=== PATIENT | male | born 1955 ===

== ENCOUNTER 2022-08-12 14:49 | Inpatient (IN) | payer OTHER, BC ==
[~2022-08-12] VITALS: Ht 167.6 cm; Wt 83.9 kg
[~2022-08-12 14:49] MED LIST: CRESTOR40 MG; JANUMET 50-501 UDTAB; LISINOPRIL20 MG
[2022-08-18] MEDS ORDERED: INTESTINEX680 M1 PO (09:17)
[2022-08-18] MEDS ORDERED: LINEZOLID600 MG PO (09:17)
[2022-08-18] MEDS ORDERED: LEVOFLOXACIN750 MG PO (09:17)
[2022-08-18] MEDS ORDERED: PEPCID AC20 MG PO (09:17)
== END 2022-08-18 14:48 | disposition home or self-care (01) | DRG 603 ==
LOC: ER 14:49 → SEC-K 19:17 → MEDJ 22:41
PROVIDERS: ADMIT Internal Medicine; ATTEND Internal Medicine
PROC: 8E0ZXY6 Isolation (ICD-10-PCS; 2022-08-12)
PROC: B54DZZZ Ultrasonography of Bilateral Lower Extremity Veins (ICD-10-PCS; 2022-08-13)
PROC: 0HBJXZX Excision of Left Upper Leg Skin, External Approach, Diagnostic (ICD-10-PCS; principal; 2022-08-16)
PROC: 0H9KXZZ Drainage of Right Lower Leg Skin, External Approach (ICD-10-PCS; 2022-08-16)
DX: L03.115 Cellulitis of right lower limb (principal); L03.311 Cellulitis of abdominal wall; C91.40 Hairy cell leukemia not having achieved remission; C84.05 Mycosis fungoides, lymph nodes of inguinal region and lower limb; L52 Erythema nodosum; B95.62 Methicillin resistant Staphylococcus aureus infection as the cause of diseases classified elsewhere; I10 Essential (primary) hypertension; E03.9 Hypothyroidism, unspecified; E11.628 Type 2 diabetes mellitus with other skin complications; E78.5 Hyperlipidemia, unspecified; Z88.0 Allergy status to penicillin; Z79.84 Long term (current) use of oral hypoglycemic drugs